=== PATIENT | male | born 1980 | race Caucasian/White ===

== ENCOUNTER 2016-05-31 15:59 | Emergency (ER) | payer MEDICAID ==
[~2016-05-31] VITALS: Ht 177.8 cm; Wt 95.0 kg
[~2016-05-31 15:59] MED LIST: ASPI-664 PO; ATEN-51 PO; HYD25 PO; HYDR-902 PO; IBUP-1542 PO; LORA1TAB54 PO; NAPR-260 PO
[2016-05-31 16:01] VITALS: Ht 177.8 cm; Wt 95.0 kg
--- NOTE | 2016-05-31 16:27 | EN ---
Date/Time of Note Date/Time of Note DATE: 05/31/16 TIME: 16:25 ER Progress Note 36 year old male presenting to the ER for ST x 4 days. Patient was evaluated in RME. On examination, patient had kissing tonsils and muffled voice. He will be sent to ER2 for treatment BLANQUITA ESPINO PA-C May 31, 2016 16:27
[2016-05-31] MEDS ORDERED: KETOROLAC 30 MG INJ IV STA (19:20)
--- NOTE | 2016-05-31 19:26 | ERD ---
ER Documentation Chief Complaint Date/Time DATE: 05/31/16 TIME: 19:[address] times 4 days, pt denies fever. HPI This is a 36-year-old male presents to the ER with a four-day history of sore throat. Patient does not have any fevers or chills. Pain is rated 7 out of 10 and is constant worse when he swallows. Patient also has a runny nose, cough. Cough is productive with green sputum. He does admit to chills. He states he also has a headache. Patient denies any chest pain shortness of breath. ROS 12 point review of systems was done, all negative except per HPI. Medications Home Meds Active Scripts Naproxen* (Naprosyn*) 500 Mg Tablet, 500 MG PO BID Y for PAIN AND/OR INFLAMMATION, #30 TAB Prov:DAYLIN GARCES 05/31/16 Prednisone* (Prednisone*) 20 Mg Tab, 40 MG PO DAILY for 4 Days, TAB Prov:DAYLIN GARCES 05/31/16 Naproxen* (Naprosyn*) 500 Mg Tablet, 500 MG PO BID Y for PAIN AND/OR INFLAMMATION, #30 TAB Prov:RADHA SNYDER PA-C 04/02/16 Hydrocodone/Acetaminophen ([place] 10-325 Tablet) 1 Each Tablet, 1 TAB PO Q6H Y for PAIN, #10 TAB Prov:RADHA SNYDER PA-C 04/02/16 Loratadine/Pseudoephedrine* (Claritin-D* 12 Hr) 5-120 Mg Tab.er.12h, 1 TAB PO Q12, #10 TAB.SA Prov:BLANQUITA ESPINO PA-C 03/15/16 Ibuprofen* (Motrin*) 600 Mg Tab, 600 MG PO Q6H Y for PAIN AND OR ELEVATED TEMP, #30 TAB Prov:BLANQUITA ESPINO PA-C 03/15/16 Naproxen* (Naprosyn*) 500 Mg Tablet, 500 MG PO BID, #20 TAB Prov:JIMMIE CARREON 10/20/15 Aspirin* (Aspirin* EC) 81 Mg Tablet.dr, 81 MG PO DAILY, #20 TAB Prov:JIMMIE CARREON 10/20/15 Reported Medications Hydrochlorothiazide* (Hydrochlorothiazide*) 25 Mg Tab, 25 MG PO DAILY, TAB 03/06/15 Atenolol* (Atenolol*) 25 Mg Tablet, 25 MG PO DAILY, TAB 03/06/15 Allergies Allergies: Coded Allergies: No Known Allergy (Unverified , 03/06/15) PMhx/Soc Medical and Surgical Hx: pt denies Surgical Hx History of Surgery: No Anesthesia Reaction: No Hx Neurological Disorder: No Hx Respiratory Disorders: No Hx Cardiac Disorders: Yes (htn) Hx Psychiatric Problems: No Hx Miscellaneous Medical Probl: No Hx Alcohol Use: No Hx Substance Use: No Hx Tobacco Use: No Physical Exam Vitals Vital Signs Date Time Temp Pulse Resp B/P Pulse Ox O2 Delivery O2 Flow Rate FiO2 05/31/16 16:01 96.4 72 20 158/99 98 Physical Exam GENERAL: The patient is well-developed, well-nourished, in no acute distress. NECK: Cervical spine is non tender with no step off. Supple, no nuchal rigidity HEENT: Atraumatic. Pupils equal, round and reactive to light. Extraocular muscles are grossly intact. Conjunctivae pink, no discharge. Bilateral tympanic membranes are clear with no evidence of erythema, effusion or dulling of the light reflex. Tonsilar erythema with kissing tonsils. No exudates, no uvular deviation RESPIRATORY: Clear to auscultation bilaterally. There are no rales, wheezes or rhonchi. HEART: Regular rate and rhythm. No murmurs, clicks, rubs or gallops. EXTREMITIES: No clubbing or cyanosis. Full range of motion. Grossly neurovascularly intact. NEUROLOGIC: Alert and oriented. Cranial nerves II through XII are intact. SKIN: There is no rash. The skin is warm and dry. Results 24 hrs Current Medications Medications (Trade) Dose Ordered Sig/Vivian Route PRN Reason Start Time Stop Time Status Last Admin Dose Admin Lidocaine 15 ml 15 ml ONCE ONCE PO 05/31/16 19:30 05/31/16 19:31 DC 05/31/16 19:36 Sodium Chloride (NS) 1,000 ml @ 1,000 mls/hr Q1H ONCE IV 05/31/16 19:30 05/31/16 20:29 05/31/16 19:35 Methylprednisolone Sodium Succinate (Solu-Medrol) 125 mg ONCE ONCE IV 05/31/16 19:30 05/31/16 19:31 DC 05/31/16 19:36 Ketorolac Tromethamine (Toradol) 30 mg ONCE STAT IV 05/31/16 19:20 05/31/16 19:22 DC 05/31/16 19:36 Procedures/MDM Patient was stable throughout ER course. Patient did have significant swelling of his tonsils. He was given IV fluids, Solu-Medrol, Toradol and Viscous Lidocaine. Upon reexamination patient felt significantly better. Differential diagnosis includes but is not limited to viral pharyngitis, bacterial pharyngitis, strep throat, mono, retropharyngeal abscess, peritonsillar abscess. This is likely viral pharyngitis. Patient has other upper respiratory infection. There was no exudates on physical examination. I doubt peritonsillar abscess or retropharyngeal abscess as patient does not have a fever and has not had a history of fevers at home. Patient will be sent home as instructed course of steroids and with naproxen. He needs to follow-up with his primary care doctor within 1-2 days or return to ER if symptoms worsen. Medical decision making sure with the patient understands and agrees with plan. Departure Diagnosis: Primary Impression: Pharyngitis Condition: Stable DAYLIN GARCES May 31, 2016 19:25
[2016-05-31] MEDS ORDERED: SOD CHLORIDE 0.9% 1,000 ML IV ONE (19:30)
[2016-05-31] MEDS ORDERED: METHYLPREDNISOLONE 125 MG INJ IV ONE (19:30)
[2016-05-31] MEDS ORDERED: LIDOCAINE 2% VISC 15 ML CUP PO ONE (19:30)
[2016-05-31] MEDS ORDERED: PRED20TA PO (20:10)
[2016-05-31] MEDS ORDERED: NAPR-260 PO (20:10)
[2016-05-31 20:35] VITALS: BP 132/78; PULSE 78; RESP 16; TEMP 98.2
== END 2016-05-31 20:36 | disposition home or self-care (01) ==
LOC: FTE 15:59
DX: J02.9 Acute pharyngitis, unspecified (principal); I10 Essential (primary) hypertension; Z79.82 Long term (current) use of aspirin
CPT/HCPCS: 96374; 96375; J1885; J2930; J7030; Z7502; Z7610

== ENCOUNTER 2016-06-27 14:18 | Emergency (ER) | payer MEDICAID ==
[~2016-06-27] VITALS: Ht 165.1 cm; Wt 90.0 kg
[~2016-06-27 14:18] MED LIST changes: +PRED20TA PO
[2016-06-27 14:25] VITALS: Ht 165.1 cm; Wt 90.0 kg
--- NOTE | 2016-06-27 16:38 | RADRPT ---
PROCEDURE: XR Chest. CLINICAL INDICATION: Chest pain. TECHNIQUE: Single frontal view of the chest was obtained COMPARISON: Chest x-ray 10/20/2015. FINDINGS: The soft tissues are normal. The bony elements are normal. The heart, cardiomediastinal silhouette and hilar structures are normal. The pulmonary vasculature is normal. There is a left-sided aorta. The lungs are clear. The costophrenic angles are normal. IMPRESSION: 1. Normal chest x-ray with no evidence of active cardiopulmonary disease. RPTAT:AAJJ Physician Jono Date Time Electronically viewed and signed by Physician Jono on 06/27/2016 16:38 /
[2016-06-27 16:52] LABS: ADD SCAN DIFF NO
[2016-06-27 16:56] LABS: BASOPHIL # 0.1 10^3/ul (0.0-0.1); BASOPHILS % 0.5 % (0.0-2.0); EOSINOPHILS # 0.4 10^3/ul (0.0-0.5); EOSINOPHILS % 3.7 % (0.0-7.0); HEMATOCRIT 47.9 % (42.0-52.0); HEMOGLOBIN 16.2 g/dl (14.0-18.0); LYMPHOCYTES % 40.8 % (15.0-51.0); MEAN CORPUSCULAR HEMOGLOBIN 29.6 pg (29.0-33.0); MEAN CORPUSCULAR HGB CONC 33.8 g/dl (32.0-37.0); MEAN CORPUSCULAR VOLUME 87.6 fl (82.0-101.0); MEAN PLATELET VOLUME 9.7 fl (7.4-10.4); MONOCYTES % 9.7 % (0.0-11.0); NEUTROPHIL # 4.4 10^3/ul (1.6-7.5); PLATELET COUNT 353 10^3/UL (140-415); RED BLOOD COUNT 5.47 10^6/ul (4.70-6.10); RED CELL DISTRIBUTION WIDTH 12.8 % (11.5-14.5); WHITE BLOOD COUNT 9.8 10^3/ul (4.8-10.8)
[2016-06-27 17:16] LABS: CHLORIDE 100 mmol/L (97-110); SODIUM 141 mmol/L (135-144)
[2016-06-27 17:17] LABS: POTASSIUM 4.3 mmol/L (3.5-5.1)
[2016-06-27 17:20] LABS: ANION GAP 15 (8-16); BLOOD UREA NITROGEN 9 mg/dl (7-20); CALCIUM 9.8 mg/dl (8.4-10.2); CARBON DIOXIDE 30 mmol/L (21-31); GLUCOSE 91 mg/dl (70-220)
[2016-06-27 17:28] LABS: INR 0.92; PROTIME 12.4 Sec (12.2-14.2)
[2016-06-27 17:30] LABS: TROPONIN-I < 0.012 ng/ml (0.00-0.12)
--- NOTE | 2016-06-27 17:41 | ERD ---
ER Documentation Chief Complaint Date/Time DATE: 06/27/16 TIME: 17:39 Chief Complaint cp onset yesterday, light headed HPI This 36-year-old male presents to the emergency room for evaluation of chest pain which occurred yesterday. The patient is no active chest pain at this time. He stated that his chest pain was sharp yesterday. He stated that he had no shortness of breath, no diaphoresis, no nausea no vomiting and came to the emergency room for evaluation. She did state that he was mildly lightheaded yesterday but is not complaining of any dizziness at this time ROS All systems reviewed and are negative except as per history of present illness. Medications Home Meds Reported Medications Hydrochlorothiazide* (Hydrochlorothiazide*) 25 Mg Tab, 25 MG PO DAILY, TAB 03/06/15 Atenolol* (Atenolol*) 25 Mg Tablet, 25 MG PO DAILY, TAB 03/06/15 Discontinued Scripts Naproxen* (Naprosyn*) 500 Mg Tablet, 500 MG PO BID Y for PAIN AND/OR INFLAMMATION, #30 TAB Prov:DAYLIN GARCES 05/31/16 Prednisone* (Prednisone*) 20 Mg Tab, 40 MG PO DAILY for 4 Days, TAB Prov:DAYLIN GARCES 05/31/16 Naproxen* (Naprosyn*) 500 Mg Tablet, 500 MG PO BID Y for PAIN AND/OR INFLAMMATION, #30 TAB Prov:RADHA SNYDER PA-C 04/02/16 Hydrocodone/Acetaminophen ([place] 10-325 Tablet) 1 Each Tablet, 1 TAB PO Q6H Y for PAIN, #10 TAB Prov:RADHA SNYDER PA-C 04/02/16 Loratadine/Pseudoephedrine* (Claritin-D* 12 Hr) 5-120 Mg Tab.er.12h, 1 TAB PO Q12, #10 TAB.SA Prov:BLANQUITA ESPINO PA-C 03/15/16 Ibuprofen* (Motrin*) 600 Mg Tab, 600 MG PO Q6H Y for PAIN AND OR ELEVATED TEMP, #30 TAB Prov:BLANQUITA ESPINO PA-C 03/15/16 Naproxen* (Naprosyn*) 500 Mg Tablet, 500 MG PO BID, #20 TAB Prov:JIMMIE CARREON 10/20/15 Aspirin* (Aspirin* EC) 81 Mg Tablet., 81 MG PO DAILY, #20 TAB Prov:JIMMIE CARREON 10/20/15 Allergies Allergies: Coded Allergies: No Known Allergy (Unverified , 06/27/16) PMhx/Soc History of Surgery: No Anesthesia Reaction: No Hx Neurological Disorder: No Hx Respiratory Disorders: No Hx Cardiac Disorders: Yes (htn) Hx Psychiatric Problems: No Hx Miscellaneous Medical Probl: No Hx Alcohol Use: No Hx Substance Use: No Hx Tobacco Use: No Smoking Status: Current some day smoker Physical Exam Vitals Vital Signs Date Time Temp Pulse Resp B/P Pulse Ox O2 Delivery O2 Flow Rate FiO2 06/27/16 14:25 98.1 74 20 141/93 99 Physical Exam INITIAL VITAL SIGNS: Reviewed by me GENERAL: The patient is well developed and appropriate for usual state of health in no apparent distress HEENT: Pupils equal, round, and reactive to light. EOMI. There is no scleral icterus. NECK: C-spine is soft and supple, there is no meningismus. There is no cervical lymphadenopathy. LUNGS: Clear to auscultation bilaterally. There are no rales, wheezes or rhonchi. HEART: Regular rate and rhythm, no murmurs, clicks, rubs or gallops. ABDOMEN: Soft, non-tender, non-distended. There are bowel sounds in all four quadrants. No rebound or guarding. EXTREMITIES: There is no peripheral cyanosis or edema. No focal swelling or erythema. NEUROLOGICAL: The patient moves all four extremities with 5/5 strength. Cranial nerves II - XII are intact. Normal gait. Alert and oriented SKIN: There is no apparent rash or petechiae. HEME/LYMPHATIC: There is no evidence of excessive bruising or lymphedema. PSYCHIATRIC: The patient does not appear anxious or depressed. Result Diagram: 06/27/16 1640 06/27/16 1640 Results 24 hrs Laboratory Tests Test 06/27/16 16:40 White Blood Count 9.810^3/ul Red Blood Count 5.4710^6/ul Hemoglobin 16.2g/dl Hematocrit 47.9% Mean Corpuscular Volume 87.6fl Mean Corpuscular Hemoglobin 29.6pg Mean Corpuscular Hemoglobin Concent 33.8g/dl Red Cell Distribution Width 12.8% Platelet Count 07264^3/UL Mean Platelet Volume 9.7fl Neutrophils % 45.0% Lymphocytes % 40.8% Monocytes % 9.7% Eosinophils % 3.7% Basophils % 0.5% Nucleated Red Blood Cells % 0.0/100WBC Neutrophils # 4.410^3/ul Lymphocytes # 4.010^3/ul Monocytes # 1.010^3/ul Eosinophils # 0.410^3/ul Basophils # 0.110^3/ul Nucleated Red Blood Cells # 0.010^3/ul Prothrombin Time 12.4Sec Prothrombin Time Ratio 1.0 INR International Normalized Ratio 0.92 Activated Partial Thromboplast Time Pending Sodium Level 141mmol/L Potassium Level 4.3mmol/L Chloride Level 100mmol/L Carbon Dioxide Level 30mmol/L Anion Gap 15 Blood Urea Nitrogen 9mg/dl Creatinine 0.90mg/dl Glucose Level 91mg/dl Calcium Level 9.8mg/dl Troponin I < 0.012ng/ml Procedures/[facility] EKG: Rate/Rhythm: [Normal Sinus Rhythm] QRS, ST, T-waves: [No changes consistent w/ acute ischemia] Impression: [No evidence of ischemia or arrhythmia] Chest X-ray 1V Interpreted by me: Soft Tissue: No acute abnormalities Bones: No acute abnormalities Mediastinum/Cardiac Silhouette/Lungs: [No acute abnormalities] This 36-year-old male presents to the emergency room for evaluation of chest pain which occurred yesterday. I evaluated this patient, he was hemodynamically stable, not hypoxic, no respiratory distress. The patient had an EKG which was normal sinus rhythm. Lab work was obtained including a troponin which is negative. His chest x-ray is also clear. This patient has a history of hypertension. He has no complaints of chest pain at this time will be discharged home with instructions to follow-up with his primary care physician on Wednesday. The patient states that he can follow-up and advised him to return to the ER if his pain worsens and he verbalized understanding. Differential diagnoses entertained was broad with potential high acuity. Patient has been evaluated for acute myocardial infarction, unstable angina, aortic dissection, pulmonary embolism, other intrathoracic and cardiac concerns. Ultimately the patient's evaluation is nondiagnostic. Based on the patient's lack of risk factors, as well as the patient's clinical, laboratory, and imaging data, the patient appears to be low risk for these high risk causes of chest pain. Departure Diagnosis: Primary Impression: Chest pain Condition: Stable MIYA LAMBERT DO Jun 27, 2016 17:41
[2016-06-27 17:57] VITALS: BP 138/68; PULSE 77; RESP 18
[2016-06-27 18:02] LABS: PARTIAL THROMBOPLASTIN TIME 28.9 Sec (25.0-35.0)
== END 2016-06-27 18:01 | disposition home or self-care (01) ==
LOC: E/R 14:18
DX: R07.9 Chest pain, unspecified (principal); F17.210 Nicotine dependence, cigarettes, uncomplicated; I10 Essential (primary) hypertension; R40.2142 Coma scale, eyes open, spontaneous, at arrival to emergency department; R40.2252 Coma scale, best verbal response, oriented, at arrival to emergency department; R40.2362 Coma scale, best motor response, obeys commands, at arrival to emergency department; Z79.82 Long term (current) use of aspirin
CPT/HCPCS: 36415; 71010; 80048; 84484; 85025; 85610; 85730; 93005; Z7502

== ENCOUNTER 2016-12-28 16:39 | Emergency (ER) | payer MEDICAID ==
[~2016-12-28] VITALS: Ht 170.2 cm; Wt 98.0 kg
[~2016-12-28 16:39] MED LIST changes: -ASPI-664 PO; -HYD25 PO; -HYDR-902 PO; +HYDR25TA6 PO; -IBUP-1542 PO; -LORA1TAB54 PO; -NAPR-260 PO; -PRED20TA PO
[2016-12-28 16:46] VITALS: Ht 170.2 cm; Wt 98.0 kg
[2016-12-28] MEDS ORDERED: ONDANSETRON 4 MG INJ IV STA (18:17)
[2016-12-28] MEDS ORDERED: KETOROLAC 30 MG INJ IV STA (18:17)
[2016-12-28] MEDS ORDERED: SOD CHLORIDE 0.9% 1,000 ML IV STA (18:17)
[2016-12-28 18:59] LABS: BASOPHIL # 0.1 10^3/ul (0.0-0.1); BASOPHILS % 0.5 % (0.0-2.0); EOSINOPHILS # 0.4 10^3/ul (0.0-0.5); EOSINOPHILS % 3.7 % (0.0-7.0); HEMATOCRIT 46.4 % (42.0-52.0); HEMOGLOBIN 15.9 g/dl (14.0-18.0); LYMPHOCYTES # 4.9 10^3/ul (0.8-2.9); LYMPHOCYTES % 45.6 % (15.0-51.0); MEAN CORPUSCULAR HEMOGLOBIN 29.7 pg (29.0-33.0); MEAN CORPUSCULAR HGB CONC 34.3 g/dl (32.0-37.0); MEAN CORPUSCULAR VOLUME 86.6 fl (82.0-101.0); MONOCYTE # 0.9 10^3/ul (0.3-0.9); MONOCYTES % 8.6 % (0.0-11.0); NEUTROPHIL # 4.5 10^3/ul (1.6-7.5); NEUTROPHILS % 41.4 % (39.0-77.0); PLATELET COUNT 327 10^3/UL (140-415); RED BLOOD COUNT 5.36 10^6/ul (4.70-6.10); RED CELL DISTRIBUTION WIDTH 12.6 % (11.5-14.5); WHITE BLOOD COUNT 10.8 10^3/ul (4.8-10.8)
[2016-12-28 19:07] LABS: ADD UMIC NO; UR ASCORBIC ACID NEGATIVE (NEGATIVE); UR BILIRUBIN (Dip) NEGATIVE (NEGATIVE); UR BLOOD (Dip) NEGATIVE (NEGATIVE); UR CLARITY CLEAR (CLEAR); UR COLOR COLORLESS (YELLOW); UR GLUCOSE (Dip) NEGATIVE (NEGATIVE); UR KETONES (Dip) NEGATIVE (NEGATIVE); UR LEUKOCYTE ESTERASE (Dip) NEGATIVE Leu/ul (NEGATIVE); UR NITRITE (Dip) NEGATIVE (NEGATIVE); UR SPECIFIC GRAVITY (Dip) 1.004 (1.003-1.030); UR TOTAL PROTEIN (Dip) NEGATIVE (NEGATIVE); UR UROBILINOGEN (Dip) NEGATIVE (NEGATIVE)
--- NOTE | 2016-12-28 19:19 | RADRPT ---
PROCEDURE: XR Chest. CLINICAL INDICATION: Abdominal pain. TECHNIQUE: Single frontal view of the chest. COMPARISON: 06/27/2016. FINDINGS: The cardiomediastinal silhouette is within normal limits. Decreased lung inflation over interval acc entuates pulmonary vascular markings. The lungs are clear. No signs of pleural fluid or pneumothorax are seen. The osseous structures and soft tissues are unremarkable. IMPRESSION: No evidence for active cardiopulmonary disease. RPTAT: [facility] Physician Pascale Date Time Electronically viewed and signed by Physician Pascale on 12/28/2016 19:19 RS/
--- NOTE | 2016-12-28 19:32 | RADRPT ---
PROCEDURE: Right Upper Quadrant Ultrasound. CLINICAL INDICATION: Abdominal Pain TECHNIQUE: Multiple real-time images were acquired of the patient's right upper quadrant abdomen a nd retroperitoneum utilizing a high resolution transducer. COMPARISON: None FINDINGS: The liver measures 16.1 cm, and demonstrates moderately increased echogenicity. The main portal vein is patent with proper directional flow. There is no intrahepatic biliary ductal dilatation. The ext rahepatic common bile duct measures 2 mm. The gallbladder is without stones, wall thickening, or pericholecystic fluid. The pancreas is not visualized. The right kidney measures 11.2 x 5.5 cm and demonstrates normal echotexture. There is no right renal calculus or hydronephrosis. The visualized abdominal aorta and IVC are grossly unremarkable. IMPRESSION: Moderate fatty infiltration of the liver. No cholelithiasis or acute cholecystitis. Normal CBD. RPTAT: EE Physician Shakila Date Time Electronically viewed and signed by Physician Shakila on 12/28/2016 19:32 RA/
[2016-12-28 19:38] LABS: ALBUMIN 4.6 g/dl (3.3-4.9); ALBUMIN/GLOBULIN RATIO 1.12; BILIRUBIN,INDIRECT 0.1 mg/dl (0-1.1); BILIRUBIN,TOTAL 0.1 mg/dl (0.2-1.3); CALCIUM 9.5 mg/dl (8.4-10.2); CREATININE 0.96 mg/dl (0.61-1.24); POTASSIUM 3.9 mmol/L (3.5-5.1); TOTAL PROTEIN 8.7 g/dl (6.1-8.1)
[2016-12-28] MEDS ORDERED: IBUP-1542 PO (20:11)
[2016-12-28] MEDS ORDERED: ONDA-43 PO (20:12)
[2016-12-28 20:19] VITALS: BP 144/89; PULSE 79; RESP 17; TEMP 98.4
--- NOTE | 2016-12-28 20:29 | ERD ---
ER Documentation Chief Complaint Date/Time DATE: 12/28/16 TIME: 20:16 Chief Complaint nausea and vomiting x3 days HPI This is a 36-year-old male presents here with multiple complaints. Patient is complaining of left-sided chest pain, right upper quadrant pain, nausea, nonbilious nonbloody vomiting, lightheadedness and fatigue. Patient denies any shortness of breath. Chest pain is worse whenever he presses down on his chest , and is nonexertional. Patient denies any family history of early onset heart attacks. He does not smoke. The patient's right upper quadrant pain it is intermittent and throbbing in quality it is nonradiating. Denies any recent cough or cold symptoms. He denies any other abdominal pain. He is any testicular pain. ROS All systems reviewed and are negative except as per history of present illness. Medications Home Meds Active Scripts Ondansetron Hcl* (Zofran*) 4 Mg Tab, 4 MG PO Q4H Y for NAUSEA AND OR VOMITING, # 15 TAB Prov:DAYLIN GARCES 12/28/16 Ibuprofen* (Motrin*) 600 Mg Tab, 600 MG PO Q6, #30 TAB Prov:DAYLIN GARCES 12/28/16 Reported Medications Hydrochlorothiazide* (Hydrochlorothiazide*) 25 Mg Tab, 25 MG PO DAILY, TAB 03/06/15 Atenolol* (Atenolol*) 25 Mg Tablet, 25 MG PO DAILY, TAB 03/06/15 Allergies Allergies: Coded Allergies: No Known Allergy (Unverified , 06/27/16) PMhx/Soc Medical and Surgical Hx: pt denies Surgical Hx History of Surgery: No Anesthesia Reaction: No Hx Neurological Disorder: No Hx Respiratory Disorders: No Hx Cardiac Disorders: Yes (htn) Hx Psychiatric Problems: No Hx Miscellaneous Medical Probl: No Hx Alcohol Use: No Hx Substance Use: No Hx Tobacco Use: No Smoking Status: Never smoker Physical Exam Vitals Vital Signs Date Time Temp Pulse Resp B/P Pulse Ox O2 Delivery O2 Flow Rate FiO2 12/28/16 16:46 98.7 75 18 156/99 96 Physical Exam GENERAL: The patient is well developed and appropriate for usual state of health , in no apparent distress. HEENT: Atraumatic. Conjunctivae are pink. Pupils equal, round, and reactive to light. Extraocular muscles are grossly intact. Bilateral tympanic membranes are clear with no evidence of erythema, effusion or dulling of the light reflex. The oropharynx is clear with no erythema or exudates. NECK: C-spine is soft and supple. There is no cervical lymphadenopathy. CHEST: Clear to auscultation bilaterally. There are no rales, wheezes or rhonchi. Reducible chest pain HEART: Regular rate and rhythm. No murmurs, clicks, rubs or gallops. ABDOMEN: Soft, nontender and nondistended. Good bowel sounds. No rebound or guarding. No gross peritonitis. No gross organomegaly or masses. No Dacosta sign or McBurney point tenderness. No pulsatile masses. BACK: No midline or flank tenderness. EXTREMITIES: Equal pulses bilaterally. There is no peripheral clubbing, cyanosis or edema. No focal swelling or erythema. Full range of motion. Grossly neurovascularly intact. NEURO: Alert and oriented. Cranial nerves II through XII are intact. Motor strength in all 4 extremities with 5/5 strength. Sensation grossly intact. Normal speech and gait. SKIN: There is no apparent rash or petechia. The skin is warm and dry. Result Diagram: 12/28/166 12/28/16 184 Results 24 hrs Laboratory Tests Test 12/28/16 18:40 12/28/16 18:46 Urine Color COLORLESS Urine Clarity CLEAR Urine pH 6.0 Urine Specific [place] 1.004 Urine Ketones NEGATIVEmg/dL Urine Nitrite NEGATIVEmg/dL Urine Bilirubin NEGATIVEmg/dL Urine Urobilinogen NEGATIVEmg/dL Urine Leukocyte Esterase NEGATIVELeu/ul Urine Hemoglobin NEGATIVEmg/dL Urine Glucose NEGATIVEmg/dL Urine Total Protein NEGATIVEmg/dl White Blood Count 10.810^3/ul Red Blood Count 5.3610^6/ul Hemoglobin 15.9g/dl Hematocrit 46.4% Mean Corpuscular Volume 86.6fl Mean Corpuscular Hemoglobin 29.7pg Mean Corpuscular Hemoglobin Concent 34.3g/dl Red Cell Distribution Width 12.6% Platelet Count 52916^3/UL Mean Platelet Volume 10.0fl Neutrophils % 41.4% Lymphocytes % 45.6% Monocytes % 8.6% Eosinophils % 3.7% Basophils % 0.5% Nucleated Red Blood Cells % 0.0/100WBC Neutrophils # 4.510^3/ul Lymphocytes # 4.910^3/ul Monocytes # 0.910^3/ul Eosinophils # 0.410^3/ul Basophils # 0.110^3/ul Nucleated Red Blood Cells # 0.010^3/ul Sodium Level 142mmol/L Potassium Level 3.9mmol/L Chloride Level 105mmol/L Carbon Dioxide Level 27mmol/L Anion Gap 14 Blood Urea Nitrogen 13mg/dl Creatinine 0.96mg/dl Glucose Level 98mg/dl Calcium Level 9.5mg/dl Total Bilirubin 0.1mg/dl Direct Bilirubin 0.00mg/dl Indirect Bilirubin 0.1mg/dl Aspartate Amino Transf (AST/SGOT) 25IU/L Alanine Aminotransferase (ALT/SGPT) 62IU/L Alkaline Phosphatase 106IU/L Total Protein 8.7g/dl Albumin 4.6g/dl Globulin 4.10g/dl Albumin/Globulin Ratio 1.12 Lipase 77U/L Current Medications Medications (Trade) Dose Ordered Sig/Vivian Route PRN Reason Start Time Stop Time Status Last Admin Dose Admin Sodium Chloride (NS) 1,000 ml @ 1,000 mls/hr Q1H STAT IV 12/28/16 18:17 12/28/16 19:16 DC 12/28/16 18:41 Ondansetron HCl (Zofran Inj) 4 mg ONCE STAT IV 12/28/16 18:17 12/28/16 18:19 DC 12/28/16 18:40 Ketorolac Tromethamine (Toradol) 30 mg ONCE STAT IV 12/28/16 18:17 12/28/16 18:19 DC 12/28/16 18:41 Procedures/MDM This is a 36-year-old male presents to the ER with multiple complaints. At this time suspicion for acute cardiac etiology is low. Patient's EKG was normal. [address] elevation or T-wave inversion EKG was read by Dr. Mchugh. His x-ray was negative for any acute intrathoracic abnormality and blood work and upper quadrant ultrasound was also negative for any acute abdominal etiology. Patient physical examination was benign. If patient's symptoms is unknown, however suspicion for emergency at this time is low. Patient will be treated symptomatically for his pain and for his nausea and vomiting. He will be sent home with ibuprofen and Zofran. Afebrile and extremely well-appearing. He is to follow-up with his primary care doctor within 1-2 days or return to ER sooner if symptoms worsen. My medical decision making shared with the patient understands and agrees with plan. Departure Diagnosis: Primary Impression: Multiple complaints Condition: Stable Patient Instructions: Nausea and Vomiting-Adult Additional Instructions: Llame al doctor MAANA y fiona ruben DANNY PARA DENTRO DE 1-2 SPA[place].Dgale a la secretaria que nosotros le instruimos hacer esta danny.Avise o llame si jalloh condicin se empeora antes de la danny. Regresa aqui si peor o no mejor. DAYLIN GARCES Dec 28, 2016 20:28
== END 2016-12-28 20:20 | disposition home or self-care (01) ==
LOC: FTE 16:39
DX: R11.2 Nausea with vomiting, unspecified (principal); I10 Essential (primary) hypertension
CPT/HCPCS: 36415; 71010; 76705; 80053; 81003; 83690; 85025; 93005; 96374; 96375; J1885; J2405; J7030; Z7502

== ENCOUNTER 2017-07-20 18:28 | Emergency (ER) | END 2017-07-20 19:53 | disposition home or self-care (01) ==

== ENCOUNTER 2017-08-20 20:08 | Emergency (ER) | END 2017-08-20 20:43 | disposition home or self-care (01) ==

== ENCOUNTER 2018-03-26 11:13 | Emergency (ER) | END 2018-03-26 12:24 | disposition home or self-care (01) ==

== ENCOUNTER 2018-03-29 16:47 | Emergency (ER) | END 2018-03-29 22:20 | disposition home or self-care (01) ==

== ENCOUNTER 2019-02-06 10:22 | Emergency (ER) | payer MEDICAID ==
[~2019-02-06] VITALS: Ht 180.3 cm; Wt 91.0 kg
[~2019-02-06 10:22] MED LIST changes: +ACET500C5 PO; +ALBU18HF INHALATION; +ALBU8.5H8 INH; +AMOX1TAB10 PO; +AZIT250T PO; +BENZ-6 PO; +FLUT9.9S NASAL; +IBUP-1542 PO; +IBUP800T48 PO; +ONDA4TAB13 PO; +OXYC-279 PO
[2019-02-06 10:51] VITALS: Ht 180.3 cm; Wt 91.0 kg
[2019-02-06] MEDS ORDERED: KETOROLAC 15 MG INJ IV STA (11:13)
[2019-02-06] MEDS ORDERED: ONDANSETRON 4 MG INJ IV STA (11:13)
[2019-02-06] MEDS ORDERED: SOD CHLORIDE 0.9% 1,000 ML IV STA (11:13)
[2019-02-06 12:32] VITALS: BP 111/76; PULSE 86; RESP 20
== END 2019-02-06 12:34 | disposition home or self-care (01) ==
LOC: E/R 10:22
DX: R10.9 Unspecified abdominal pain (principal); I10 Essential (primary) hypertension
CPT/HCPCS: 36415; 74176; 80053; 81003; 83690; 85025; 96374; 96375; J1885; J2405; J7030; Z7502